=== PATIENT | male | born 2000 | race Caucasian/White ===

== ENCOUNTER 2023-02-03 00:11 | Emergency (ER) | payer OTHER ==
[~2023-02-03] VITALS: Ht 177.8 cm; Wt 84.1 kg
[2023-02-03 00:20] VITALS: TEMP 97.1
[2023-02-03 01:15] VITALS: BP 124/78; PULSE 76
== END 2023-02-03 01:15 | disposition home or self-care (01) ==
LOC: COL.ER 00:11
DX: S61.214A Laceration without foreign body of right ring finger without damage to nail, initial encounter (principal); Z23 Encounter for immunization; W26.0XXA Contact with knife, initial encounter